=== PATIENT | female | born 1965 | race Caucasian/White ===

== ENCOUNTER 2024-02-08 01:44 | Emergency (ER) | payer BC ==
[~2024-02-08] VITALS: Ht 160 cm; Wt 61.2 kg
[2024-02-08 02:35] VITALS: TEMP 98.2
[2024-02-08 02:55] LABS: BASOPHILS % (AUTO) 0.6 % (0.0-2.0); EOSINOPHILS % (AUTO) 0.8 % (0.0-6.0); HEMATOCRIT 43 % (33-45); HEMOGLOBIN 14.7 g/dL (11.5-14.8); LYMPHOCYTES # (AUTO) 1.1 K/uL (0.8-4.8); LYMPHOCYTES % (AUTO) 23.8 % (20.0-44.0); MEAN CORPUSCULAR HEMOGLOBIN 31 PG (26.0-33.0); MEAN CORPUSCULAR HGB CONC 34 g/dl (31.0-36.0); MEAN CORPUSCULAR VOLUME 91 fL (82-100); MONOCYTES # (AUTO) 0.4 K/uL (0.1-1.30); NEUTROPHILS # (AUTO) 3.1 K/uL (1.8-8.9); NEUTROPHILS % (AUTO) 66.8 % (43.0-81.0); PLATELET COUNT (AUTO) 232 K/uL (150-450); RED BLOOD CELL COUNT(AUTO) 4.75 MIL/uL (4.0-5.2); RED CELL DISTRIBUTION WIDTH 13.4 % (11.5-15.0); WHITE BLOOD COUNT (AUTO) 4.6 K/uL (4.3-11.0)
[2024-02-08] MEDS: IV NS 0.9% 1,000 ML BAG IV ONE (03:00)
[2024-02-08] MEDS ORDERED: PANTOPRAZOLE 40 MG VIAL ONE (03:03)
[2024-02-08] MEDS ORDERED: ONDANSETRON HCL/PF 4 MG/2 ML VIAL ONE (03:03)
[2024-02-08] MEDS ORDERED: MORPHINE SULFATE INJ 4 MG/ML DISP.SYRIN ONE (03:03)
[2024-02-08 03:12] LABS: CALCIUM, SERUM 9.7 mg/dL (8.5-10.1); CREATININE 0.6 mg/dL (0.6-1.3); POTASSIUM 3.8 mmol/L (3.5-5.1)
[2024-02-08] MEDS: MORPHINE SULFATE INJ 2 MG/ML DISP.SYRIN IV ONE (03:16)
[2024-02-08] MEDS: ONDANSETRON HCL/PF - ER 4 MG/2 ML VIAL IV ONE (03:17)
[2024-02-08] MEDS: PANTOPRAZOLE 40 MG VIAL IV ONE (03:17)
[2024-02-08 03:18] LABS: ALBUMIN 3.7 g/dL (3.4-5.0); BILIRUBIN,DIRECT 0.1 mg/dL (0.0-0.2); BILIRUBIN,TOTAL 0.6 mg/dL (0.2-1.0); TOTAL PROTEIN, SERUM 7.9 g/dL (6.4-8.2)
[2024-02-08 03:40] LABS: APPEARANCE,URINE CLEAR (CLEAR); BILIRUBIN,URINE NEGATIVE (NEGATIVE); BLOOD, URINE NEGATIVE Ery/uL (NEGATIVE); COLOR,URINE YELLOW (YELLOW); KETONES,URINE NEGATIVE (NEGATIVE); LEUKOCYTE ESTERASE ,URINE NEGATIVE (NEGATIVE); NITRITE, URINE NEGATIVE (NEGATIVE); PROTEIN,URINE NEGATIVE (NEGATIVE); UGLUCOSE NEGATIVE (NEGATIVE); UROBILINOGEN,URINE 0.2 EU/dL (0.2)
[2024-02-08] MEDS ORDERED: MAG HYDROX/AL HYDROX/SIMETH 30 ML UDC ONE (03:50)
[2024-02-08] MEDS: MAG HYDROX/AL HYDROX/SIMETH 30 ML UDC PO ONE (03:52)
[2024-02-08] MEDS ORDERED: ONDA4TAB11 PO (04:15)
[2024-02-08] MEDS ORDERED: PANT20TA2 PO (04:20)
[2024-02-08] MEDS ORDERED: FAMO20TA80 PO (04:20)
[2024-02-08 05:46] VITALS: BP 129/84; O2SAT 98
== END 2024-02-08 05:47 | disposition home or self-care (01) ==
LOC: ER 01:46
DX: K29.70 Gastritis, unspecified, without bleeding (principal); R10.13 Epigastric pain; R11.2 Nausea with vomiting, unspecified; Z88.8 Allergy status to other drugs, medicaments and biological substances
CPT/HCPCS: 99284; 96374; 96361; 96375; 85025; 80048; 83690; 80076; 81003; 36415; J2405; J7030; J2470; J2270